=== PATIENT | female | born 1970 | race Two or more races ===

== ENCOUNTER 2020-02-16 09:47 | Emergency (ER) | payer OTHER ==
[~2020-02-16] VITALS: Ht 162.6 cm; Wt 68.0 kg
[2020-02-16] MEDS ORDERED: ZOCOR20 MG (10:44)
[2020-02-16] MEDS ORDERED: LEVO-T100 MCG (10:45)
[2020-02-16] MEDS ORDERED: AIRBORNE EFFER1 EACH PO (16:03)
[2020-02-16] MEDS ORDERED: DECADRON6 MG PO (16:03)
== END 2020-02-16 16:40 | disposition home or self-care (01) ==
LOC: ER 09:47
DX: U07.1 COVID-19 (principal); R06.02 Shortness of breath